=== PATIENT | female | born 1970 | race Caucasian/White ===

== ENCOUNTER 2018-08-30 02:20 | Emergency (ER) | payer BC ==
--- NOTE | 2018-08-30 02:54 | ERPHSYRPT ---
- History of Present Illness Time Seen by Provider: 08/30/18 02:40 Patient Subjective Stated Complaint: hurts in pelvic area and vaginal area, feels like she has to urinate frequently but doesn't urinate much Triage Nursing Assessment: Pt c/o of pain in the pelvic/vaginal area stating that it feels like it's throbbing and has lots of pressure x2 days, afebrile, urinary frequency w/o actually urinating, pain with palpatation on lower abdominal area, denies any other problems at this time Physician History: 48 y/o white female presents with 2 day h/o suprapubic pressure, urgency and frequency. mild discharge. seen at a [facility] and no uti at that clinic. Timing/Duration: day(s) (2), intermittent Activites at Onset: none Quality: burning, pressure Onset Location: suprapubic Severity of Pain-Max: mild Severity of Pain-Current: mild Associated Symptoms: abdominal pain (suprapubic), urinary frequency, vaginal discharge (faint), No fever, No chills, No diaphoresis, No nausea, No vomiting, No dysuria, No nocturia, No polyuria, No , No lower back pain, No swelling, No syncope, No vaginal fluid leakage Allergies/Adverse Reactions: No Known Drug Allergies Allergy (Verified 08/30/18 02:41) Home Medications: Estradiol 1 mg [Estrace 1 mg] 1 mg PO DAILY 12/31/16 [History] Ranitidine HCl [Zantac] 300 mg PO DAILY 12/31/16 [History] Hx Tetanus, Diphtheria Vaccination/Date Given: Yes (1999) Hx Influenza Vaccination/Date Given: No Hx Pneumococcal Vaccination/Date Given: No - Review of Systems Constitutional: No Symptoms, No Fever, No Chills Eyes: No Symptoms, No Discharge, No Eye Pain Ears, Nose, & Throat: No Symptoms, No Ear Pain Respiratory: No Symptoms, No Cough, No Dyspnea, No Stridor, No Wheezing Cardiac: No Symptoms, No Palpitations, No Syncope Abdominal/Gastrointestinal: Abdominal Pain (suprapubic), No Nausea, No Vomiting , No Diarrhea Genitourinary Symptoms: Frequency, Urgency Musculoskeletal: No Symptoms Skin: No Symptoms Neurological: No Symptoms Psychological: No Symptoms Endocrine: No Symptoms Hematologic/Lymphatic: No Symptoms Immunological/Allergic: No Symptoms All Other Systems: Reviewed and Negative - Past Medical History Pertinent Past Medical History: Yes Neurological History: No Pertinent History ENT History: Other Cardiac History: No Pertinent History Respiratory History: No Pertinent History Endocrine Medical History: No Pertinent History Musculoskeletal History: No Pertinent History GI Medical History: Irritable Bowel, Other History: No Pertinent History Psycho-Social History: No Pertinent History Female Reproductive Disorders: No Pertinent History Other Medical History: body produces cholestrol stones - Past Surgical History Past Surgical History: Yes Neuro Surgical History: No Pertinent History Cardiac: No Pertinent History Respiratory: No Pertinent History Gastrointestinal: Cholecystectomy, Other Genitourinary: No Pertinent History Musculoskeletal: No Pertinent History Female Surgical History: Hysterectomy Other Surgical History: PATIENT STATES SHE HAS 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 - Social History Smoking Status: Current every day smoker How long have you smoked: 20 years Exposure to second hand smoke: Yes Drug Use: none Patient Lives Alone: No - Female History Hx Now: No (total hysterectomy) - Nursing Vital Signs Nursing Vital Signs: Initial Vital Signs Temperature 97.5 F 08/30/18 02:25 Pulse Rate 65 08/30/18 02:25 Blood Pressure 128/70 08/30/18 02:25 O2 Sat by Pulse Oximetry 99 08/30/18 02:25 Pain Scale Pain Intensity 5 - Physical Exam General Appearance: no apparent distress, alert, anxiety Eye Exam: PERRL/EOMI, eyes nml inspection Ears, Nose, Throat Exam: normal ENT inspection, TMs normal, moist mucous membranes Neck Exam: normal inspection, non-tender, supple, full range of motion Respiratory Exam: normal breath sounds, lungs clear, airway intact, No chest tenderness, No respiratory distress, No accessory muscle use, No rhonchi, No wheezing, No stridor Cardiovascular Exam: regular rate/rhythm, normal heart sounds, normal peripheral pulses Gastrointestinal/Abdomen Exam: soft, normal bowel sounds, tenderness (mild suprapubic), No guarding, No rebound Pelvic Exam: not done Rectal Exam: not done Back Exam: normal inspection, normal range of motion, No CVA tenderness, No vertebral tenderness Extremity Exam: normal inspection, normal range of motion, pelvis stable Neurologic Exam: alert, oriented x 3, cooperative, talent development coordinator II-XII nml as tested Skin Exam: normal color, warm, dry Lymphatic Exam: adenopathy SpO2 Interpretation: normal SpO2: 99 Oxygen Delivery: Room Air - Course Nursing assessment & vital signs reviewed: Yes Ordered Tests: Active Orders 24 hr Category Date Time Status Clean Catch Urine Specimen STAT Care 08/30/18 02:55 Active CULTURE,URINE Stat Lab 08/30/18 03:01 Received UA W/RFX UR CULTURE Stat Lab 08/30/18 03:01 Completed Medication Summary Generic Name Dose Route Start Last Admin Trade Name Freq PRN Reason Stop Dose Admin Phenazopyridine HCl 200 mg 08/30/18 03:39 Pyridium 200 Mg PO 08/30/18 03:40 STAT ONE Discontinued Medications Generic Name Dose Route Start Last Admin Trade Name Freq PRN Reason Stop Dose Admin Ciprofloxacin 500 mg 08/30/18 03:38 Cipro 500 Mg PO 08/30/18 03:39 STAT ONE Lab/Rad Data: Laboratory Results 08/30/18 Range/Units 03:01 Urine Color STRAW (YELLOW) Urine Appearance SLIGHTLY CLOUDY (CLEAR) Urine pH 6.0 (5-6) Ur Specific [place] 1.002 (1.005-1.025) Urine Protein 30 (Negative) Urine Ketones NEGATIVE (NEGATIVE) Urine Blood LARGE (0-5) Isauro/ul Urine Nitrite NEGATIVE (NEGATIVE) Urine Bilirubin NEGATIVE (NEGATIVE) Urine Urobilinogen NEGATIVE (0-1) mg/dL Ur Leukocyte Esterase MODERATE (NEGATIVE) Urine WBC (Auto) 26-50 (0-5) /HPF Urine RBC (Auto) 11-15 (0-2) /HPF U Epithel Cells (Auto) RARE (FEW) /HPF Urine Bacteria (Auto) RARE (NEGATIVE) /HPF Urine Mucus (Auto) SLIGHT (NEGATIVE) /HPF Urine Culture Reflexed YES (NO) Urine Glucose NEGATIVE (NEGATIVE) mg/dL - Progress Air Movement: good Blood Culture(s) Obtained: No Antibiotics given: Yes Counseled pt/family regarding: lab results, diagnosis, need for follow-up - Departure Time of Disposition: 03:40 Departure Disposition: Home Clinical Impression: UTI (urinary tract infection) Condition: Stable Critical Care Time: No Referrals: LADAN PASCAL [Primary Care Provider] - Additional Instructions: drink plenty of fluids. add tylenol and ibuprofen for pain. follow up with primary doctor for persistent symptoms Prescriptions: Ciprofloxacin [Cipro 500 MG] 500 mg PO BID #14 tablet Phenazopyridine HCl 200 mg [Pyridium 200 mg] 200 mg PO TID #6 tablet
[2018-08-30 03:14] LABS: Appearance SLIGHTLY CLOUDY (CLEAR); Bilirubin NEGATIVE (NEGATIVE); Blood LARGE Ery/ul (0-5); Glucose NEGATIVE (NEGATIVE); Ketones NEGATIVE (NEGATIVE); Leukocyte Esterase MODERATE (NEGATIVE); Nitrite NEGATIVE (NEGATIVE); Protein,Urine Dip 30 (Negative); Specific Gravity 1.002 (1.005-1.025); Urobilinogen NEGATIVE mg/dL (0-1)
[2018-08-30] MEDS ORDERED: Cipro 500 MG PO ONE (03:38)
[2018-08-30] MEDS ORDERED: PYRIDIUM 200 MG PO ONE (03:39)
[2018-08-30] MEDS ORDERED: Cipro 500 MG ONE (03:41)
[2018-08-30] MEDS ORDERED: PYRIDIUM 200 MG ONE (03:41)
[2018-08-30 03:47] VITALS: O2SAT 99
[2018-08-30 03:56] VITALS: BP 131/67; PULSE 60
== END 2018-08-30 03:56 | disposition home or self-care (01) ==
LOC: ED 02:20
DX: N39.0 Urinary tract infection, site not specified (principal); Z79.899 Other long term (current) drug therapy
CPT/HCPCS: 81001; 87077; 87086; 87186; 99283; A9270-GY

== ENCOUNTER 2019-04-13 09:28 | Day surgery (SDC) | payer BC ==
[2019-04-13] MEDS ORDERED: DIPYRIDAMOLE IV ONE (09:29)
[2019-04-13] MEDS ORDERED: Lactated Ringers 1,000 ML IV SCH (10:00)
[2019-04-13 12:55] VITALS: O2SAT 99
[2019-04-13 13:07] VITALS: BP 132/59; PULSE 53
--- NOTE | 2019-04-13 14:28 | OP ---
SURGERY DATE/TIME: 04/13/2019 PREOPERATIVE DIAGNOSES: 1) History of upper and lower abdominal pain. 2) Family history of colon cancer and change in bowel habits, need for upper and lower endoscopy to evaluate for peptic ulcer disease, gastritis, colitis, polyps or other etiology. POSTOPERATIVE DIAGNOSES: 1) Superficial prepyloric distal antral area ulcer. 2) Mild gastritis. 3) Mild diverticulosis. 4) Colon polyp sigmoid colon. 5) Small early polyp versus hyperplastic lesion rectum. 6) Fair bowel prep. PROCEDURES: 1) EGD with cold biopsy of small bowel to evaluate for celiac sprue. 2) Cold biopsy of the antrum to evaluate for Helicobacter pylori. 3) Cold biopsy distal esophagus at gastroesophageal junction to evaluate for very short segment early distal gastroesophagitis versus just normal variation of gastroesophageal junction. 4) Colonoscopy to terminal ileum. 5) Retrograde ileoscopy. 6) Random cold biopsies of ileum to evaluate for microscopic ileitis. 7) Random cold biopsies colon to evaluate for microscopic colitis. 8) Hot snare polypectomy small sigmoid colon polyp (unable to retrieve polyp in the suction container). 9) Hot biopsy removal small raised lesion versus early polyps or hyperplastic lesions rectum. SURGEON: Dr. Kade Jackson. ANESTHESIA: MAC. ESTIMATED BLOOD LOSS: Minimal. INDICATIONS: As noted above. Risks and benefits explained in detail and not limited to and consent obtained. DESCRIPTION OF PROCEDURE AND FINDINGS: The patient is taken to the operating room. MAC anesthesia introduced. After official time out and no disagreement with planned procedure, a bite block positioned. Video gastroscope easily passed down the esophagus through the patent pylorus to the junction of the second and third portion of the duodenum. Duodenum and duodenal bulb were grossly unremarkable. Back in the stomach there was a small superficial ulceration prepyloric distal antral area. Cold biopsy taken of the mild gastritis to evaluate for Helicobacter pylori. Good hemostasis noted. Also in the antrum was a little small aphthous ulceration or erosion. No active bleeding. On retroflex the gastroesophageal junction snug against the scope. No signs of any hiatal hernia. Scope is straightened. Gastroesophageal junction 40 cm. There were a couple of millimeters to 3 mm little raised fingerlette versus normal variation of the gastroesophageal junction. Cold biopsy taken in this area to evaluate for possible early distal esophagitis versus normal variation of gastroesophageal junction. Gastroesophageal junction at 40 cm. The remainder of the esophagus no evidence of any mucosal lesions. No signs of any masses, ulcers or any other mucosal lesions on withdrawal of the scope. Patient tolerated this part of the procedure well. Attention is then turned to the colonoscopy. Digital rectal exam did not reveal any rectal masses. She did have some small internal and external hemorrhoids. Video colonoscope inserted and passed up the slightly tortuous sigmoid, descending, transverse, ascending colon over around to the cecum. Appendiceal orifice and valve well visualized. Scope was able to be passed up the terminal ileum. Retrograde ileoscopy performed which is grossly unremarkable but given her symptoms complaints of lower abdominal pain it was felt she warranted biopsy for evaluation of microscopic ileitis. Cold biopsy taken. Good hemostasis noted. Otherwise scope was slowly and carefully withdrawn. The prep overall was fair. There was a little bit of liquidy stool that was suction irrigated as clear as possible. Some random cold biopsies were done throughout the colon to valuate for microscopic colitis given her symptom complaints of vague abdominal pain. Otherwise scope is slowly and carefully withdrawn. She had few diverticula in the left colon. She had a small polyp in the sigmoid colon that was removed with hot snare polypectomy this was in the neighborhood of 2.5 to 3 mm in size removed with hot snare. Unfortunately, the staff was unable to retrieve it with the patient's liquidy stool to pass off but this did appear to be adenomatous-type polyp rather than a simple hyperplastic. Good hemostasis noted. Scope pulled back in the rectum. She had 3 small raised lesions versus early polyps or hyperplastic lesions removed with hot biopsy forceps and brief burst of cautery. Good hemostasis noted. She had some internal and external hemorrhoids. There were no signs of any large polyps, masses or obstructing lesions. The scope is withdrawn. The patient tolerated the procedure well. Findings discussed with the family out in the waiting area. She was given a script for proton pump inhibitor. She is to avoid NSAID's, aspirin or steroids over the next couple of weeks. I will see her back in the office next week.
== END 2019-04-13 13:10 | disposition home or self-care (01) ==
LOC: SDC 09:28
PROVIDERS: ATTEND Surgery
DX: K25.9 Gastric ulcer, unspecified as acute or chronic, without hemorrhage or perforation (principal); K29.70 Gastritis, unspecified, without bleeding; K57.30 Diverticulosis of large intestine without perforation or abscess without bleeding; D12.8 Benign neoplasm of rectum; K63.5 Polyp of colon; K52.9 Noninfective gastroenteritis and colitis, unspecified; Z80.0 Family history of malignant neoplasm of digestive organs
CPT/HCPCS: J1245

== ENCOUNTER 2019-06-22 08:26 | Day surgery (SDC) | payer BC ==
--- NOTE | 2019-06-22 07:53 | HP ---
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 PAST MEDICAL HISTORY: Irritable bowel. PAST SURGICAL HISTORY: She had endoscopy in the past. She had hysterectomy in the past for endometriosis. MEDICATIONS: Estradiol, ranitidine. ALLERGIES: NKDA. FAMILY HISTORY: Negative in regards to this problem. SOCIAL HISTORY: One pack per day smoking, social alcohol use denies abuse. REVIEW OF SYSTEMS: Fourteen systems reviewed per admission assessment. No chest pain or palpitations other systems negative or noncontributory as above and per preadmission questionnaire. PHYSICAL EXAMINATION: GENERAL: No acute distress. HEENT: Sclerae nonicteric. NECK: No JVD. CHEST: Equal excursion, nonlabored breathing. CVS: Regular rate and rhythm. ABDOMEN: Soft. No peritoneal signs. EXTREMITIES: No significant edema. NEURO: Alert, oriented, moving extremities symmetrically. No gross motor deficits noted. IMPRESSION: History of superficial prepyloric ulcer on endoscopy several weeks ago. She is in need of follow up upper endoscopy to evaluate healing of the ulcer site. Risks and benefits explained in detail including but not limited to bleeding or infection, risk of bowel injury or perforation possibly requiring open procedure, risk of missed or nondiagnosis or incomplete exam possibly requiring other studies or procedures, general risk of anesthesia or sedation. She understands and agrees to the planned procedure and will proceed with EGD with possible biopsy as an outpatient.
[2019-06-22] MEDS ORDERED: Lactated Ringers 1,000 ML IV SCH (08:30)
[2019-06-22] MEDS ORDERED: DIPRIVAN 200 MG/20 ML IV ONE (10:04)
[2019-06-22 10:43] VITALS: O2SAT 97
[2019-06-22 11:11] VITALS: BP 138/44; PULSE 56
--- NOTE | 2019-06-22 12:47 | OP ---
SURGERY DATE/TIME: 06/22/2019 1005 PREOPERATIVE DIAGNOSIS: History of prepyloric antral area ulcer in need for follow up upper endoscopy to evaluate healing. POSTOPERATIVE DIAGNOSES: 1) Healed ulcer site, 2) Mild gastritis. PROCEDURES: EGD with cold biopsy of antrum to evaluate for Helicobacter pylori. SURGEON: Dr. Kade Jackson. ANESTHESIA: MAC. ESTIMATED BLOOD LOSS: Minimal. INDICATIONS: As noted above. Risks and benefits explained in detail and not limited to and consent obtained. DESCRIPTION OF PROCEDURE AND FINDINGS: The patient is taken to the endoscopy room. MAC anesthesia introduced. After official time out and no disagreement with planned procedure, a bite block positioned. Video gastroscope easily passed down the esophagus through the patent pylorus to the junction of the second and third portion of the duodenum. Duodenum and duodenal bulb were grossly unremarkable. Back in the stomach in the antral prepyloric area the ulcer area had healed. She did have some mild gastritis. Cold biopsy taken to evaluate for Helicobacter pylori. Good hemostasis noted. Otherwise there were no signs of any other ulcers, masses, polyps or any other mucosal lesions other than the mild gastritis. On retroflex the gastroesophageal junction snug against the scope. The scoped is straightened and pulled back up through the esophagus. No evidence of any ulcers or masses. The scope is withdrawn. The patient tolerated the procedure well. There were no immediate complications. Findings discussed with the family out in the waiting area. I will see her back in the office next week to go over the results.
== END 2019-06-22 11:15 | disposition home or self-care (01) ==
LOC: SDC 08:26
PROVIDERS: ATTEND Surgery
DX: Z09 Encounter for follow-up examination after completed treatment for conditions other than malignant neoplasm (principal); K29.70 Gastritis, unspecified, without bleeding; Z87.11 Personal history of peptic ulcer disease; Z87.19 Personal history of other diseases of the digestive system; Z79.899 Other long term (current) drug therapy
CPT/HCPCS: 88305; 88312; J2704